=== PATIENT | male | born 1980 | race Caucasian/White ===

== ENCOUNTER 2018-07-16 19:32 | Inpatient (IN) | payer OTHER ==
[~2018-07-16] VITALS: Ht 177.8 cm; Wt 83.9 kg
[~2018-07-16 19:32] MED LIST: BENAZEPRIL40 M1 PO; LABETALOL HCL200 MG PO
[2018-07-16 20:59] LABS: CALCIUM 7.8 mg/dL (8.5-10.1); CREATININE SERUM 2.3 mg/dL (0.7-1.3)
[2018-07-16 21:03] LABS: BILIRUBIN TOTAL 3.2 mg/dL (0.20-1.00); TOTAL PROTEIN, SERUM 7.2 g/dL (6.4-8.2)
[2018-07-16 21:15] LABS: ALBUMIN 2.5 g/dL (3.4-5.0)
[2018-07-16 21:16] LABS: BASOPHIL % 1.2 % (0-2); PLATELET COUNT 141 x10^3mcL (130-400)
[2018-07-16 21:20] LABS: RED CELL DISTRIBUTION WIDTH 14.8 % (11.5-14.5)
[2018-07-16 21:21] LABS: microscopic required? YES; urine erythrocyte 1+ (NEGATIVE)
[2018-07-16] MEDS ORDERED: NOR10 PO (22:07)
[2018-07-16] MEDS ORDERED: LIPI20 PO (22:08)
[2018-07-16 22:57] VITALS: BP 142/97
[2018-07-16 23:05] VITALS: Ht 177.8 cm; Wt 83.9 kg
[2018-07-16 23:07] LABS: AMPHETAMINE QUAL UR NONE DETECTED (See below)
[2018-07-17 01:24] LABS: AMYLASE 48 U/L (25-115); PHOSPHOROUS 2.9 mg/dL (2.5-4.9)
[2018-07-17 01:28] LABS: CHOLESTEROL 389 mg/dL (<200); CHOLESTEROL/HDL RATIO 29.9; HDL CHOLESTEROL 13 mg/dL (40-60); TRIGLYCERIDES 1208 mg/dL (<150)
[2018-07-17 01:57] LABS: FREE T4 1.16 ng/dL (0.76-1.46); FREE THYROXINE INDEX 2.2 ug/dL (1.4-4.5); T4(THYROXINE) 6.2 ug/dL (4.7-13.3)
[2018-07-17 02:49] LABS: T3 TOTAL 0.81 ng/mL
[2018-07-17 05:42] VITALS: BP 151/100
[2018-07-17 06:31] LABS: CALCIUM 7.3 mg/dL (8.5-10.1); MAGNESIUM 1.4 mg/dL (1.8-2.4); PHOSPHOROUS 3.9 mg/dL (2.5-4.9)
[2018-07-17 06:41] LABS: POTASSIUM SERUM 2.9 mmol/L (3.5-5.1)
[2018-07-17 06:43] VITALS: BP 151/99
[2018-07-17 08:12] LABS: PLATELET COUNT 140 x10^3mcL (130-400)
[2018-07-17 08:15] LABS: RED CELL DISTRIBUTION WIDTH 15.6 % (11.5-14.5)
[2018-07-17 09:25] VITALS: BP 137/91
[2018-07-17 11:03] LABS: BAND NEUTROPHIL 1 % (0-10); BASOPHIL 0 % (0-2); MONOCYTE 7 % (0-7); SEGMENTED NEUTROPHILS 79 % (37-75)
[2018-07-17 11:05] LABS: ovalocyte/elliptocyte 1+; rbc morphology (normal/abnorm) ABNORMAL (NORMAL)
[2018-07-17 13:47] VITALS: BP 136/91
[2018-07-17 13:58] LABS: ALBUMIN 2.3 g/dL (3.4-5.0); BILIRUBIN DIRECT 2.43 mg/dL (0.0-0.2); BILIRUBIN TOTAL 2.69 mg/dL (0.20-1.00); TOTAL PROTEIN, SERUM 6.4 g/dL (6.4-8.2)
== END 2018-07-17 15:30 | disposition left against medical advice (07) | DRG 280 ==
LOC: ED 19:32 → MU 21:32 → DU 21:32 → MU 22:24 → DU 07-17 04:57
PROVIDERS: Emergency Medicine; Internal Medicine
DX: K70.30 Alcoholic cirrhosis of liver without ascites (principal); N17.0 Acute kidney failure with tubular necrosis; E43 Unspecified severe protein-calorie malnutrition; G92 Toxic encephalopathy; R80.9 Proteinuria, unspecified; E83.42 Hypomagnesemia; E83.51 Hypocalcemia; D53.9 Nutritional anemia, unspecified; E78.00 Pure hypercholesterolemia, unspecified; I10 Essential (primary) hypertension; E87.6 Hypokalemia; I87.2 Venous insufficiency (chronic) (peripheral); E87.2 Acidosis; F10.239 Alcohol dependence with withdrawal, unspecified; Y90.8 Blood alcohol level of 240 mg/100 ml or more; Z79.899 Other long term (current) drug therapy; Z68.29 Body mass index [BMI] 29.0-29.9, adult; Z53.21 Procedure and treatment not carried out due to patient leaving prior to being seen by health care provider
CPT/HCPCS: 83880; 84439; G0480; J3480; J7030; Q0092